=== PATIENT | male | born 1975 | race American Indian/Alaskan Native ===

== ENCOUNTER 2016-11-29 14:53 | Emergency (ER) | payer SELFPAY ==
[2016-11-29 15:03] VITALS: BP 127/93
== END 2016-11-29 17:28 | disposition left against medical advice (07) ==
LOC: ED 14:53
DX: M54.9 Dorsalgia, unspecified (principal); F12.90 Cannabis use, unspecified, uncomplicated; Z87.891 Personal history of nicotine dependence; Z53.21 Procedure and treatment not carried out due to patient leaving prior to being seen by health care provider

== ENCOUNTER 2016-12-18 10:35 | Emergency (ER) | payer SELFPAY | END 2016-12-18 10:37 | disposition left against medical advice (07) | LOC: ED 10:35 | DX: M54.9 Dorsalgia, unspecified (principal); Z53.21 Procedure and treatment not carried out due to patient leaving prior to being seen by health care provider ==